=== PATIENT | male | born 1970 | race Two or more races ===

== ENCOUNTER 2019-03-26 12:49 | Inpatient (IN) | payer MEDICAID ==
[~2019-03-26] VITALS: Ht 170.2 cm; Wt 68.0 kg
--- NOTE | 2019-03-26 12:59 | NUR ---
BIBRA89, HOMELESS, FOUND WALKING IN THE MIDDLE OF THE STREET, DENIES SI/HI. PATIENT A/OX2-3 BREATHING EVEN AND UNLABORED, NO SOB NOTED, NEEDS ATTENDED. KEPT COMFORTABLE.
[2019-03-26 14:41] LABS: BASOPHILS % (AUTO) 0.4 % (0.0-2.0); CALCIUM, SERUM 9.2 mg/dL (8.5-10.1); CARBON DIOXIDE 23 mmol/L (21-32); CHLORIDE 107 mmol/L (98-107); CREATININE 1.5 mg/dL (0.6-1.3); EOSINOPHILS % (AUTO) 0.1 % (0.0-6.0); GLUCOSE 110 mg/dL (74-106); HEMATOCRIT 34 % (39-51); HEMOGLOBIN 11.5 g/dL (13.5-17.5); LYMPHOCYTES # (AUTO) 1.3 /CMM (0.8-4.8); LYMPHOCYTES % (AUTO) 22.6 % (20.0-44.0); MEAN CORPUSCULAR HGB CONC 33 g/dl (31.0-36.0); MEAN CORPUSCULAR VOLUME 89 fL (80-96); MONOCYTES # (AUTO) 0.4 /CMM (0.1-1.30); MONOCYTES % (AUTO) 7.1 % (2.0-12.0); NEUTROPHILS % (AUTO) 69.8 % (43.0-81.0); PLATELET COUNT (AUTO) 246 /CMM (150-450); POTASSIUM 3.9 mmol/L (3.5-5.1); RED BLOOD CELL COUNT(AUTO) 3.86 MIL/uL (4.5-6.0); SODIUM SERUM 142 mmol/L (136-145); UREA NITROGEN, BLOOD 37 mg/dL (7-18); WHITE BLOOD COUNT (AUTO) 5.7 K/uL (4.3-11.0)
[2019-03-26 14:46] LABS: ACETAMINOPHEN 0 ug/ml (10-30); ALANINE AMINOTRANSFERASE 24 U/L (12-78); ALBUMIN 4.6 g/dL (3.4-5.0); ALCOHOL, BLOOD < 3 mg/dL (0-0); ALKALINE PHOSPHATASE 48 U/L (46-116); ASPARTATE AMINOTRANSFERASE 27 U/L (15-37); BILIRUBIN,DIRECT 0.1 mg/dL (0.0-0.2); BILIRUBIN,TOTAL 0.4 mg/dL (0.2-1.0); SALICYLATE 1.4 mg/dL (2.8-20.0); TOTAL PROTEIN, SERUM 8.6 g/dL (6.4-8.2)
--- NOTE | 2019-03-26 15:08 | NUR ---
Patient is resting comfortably in bed with eyes closed. Easily aroused. VSS. URINE SENT VIA STRAIGHT CATH.
[2019-03-26 15:13] LABS: APPEARANCE,URINE Clear (CLEAR); BILIRUBIN,URINE Negative (NEGATIVE); BLOOD, URINE Trace-intact Ery/uL (NEGATIVE); COLOR,URINE Yellow (YELLOW); KETONES,URINE Trace (NEGATIVE); LEUKOCYTE ESTERASE ,URINE Negative (NEGATIVE); NITRITE, URINE Negative (NEGATIVE); PH,URINE 5.5 (5.0-8.0); PROTEIN,URINE Negative (NEGATIVE); UGLUCOSE Negative (NEGATIVE); UROBILINOGEN,URINE 0.2 EU/dL (0.2)
[2019-03-26 15:18] LABS: BACTERIA,URINE Rare /HPF (None Seen); SQUAMOUS EPITHELIAL CELL,UR Rare /HPF (None Seen); WBC,URINE 0-2 /HPF (0-3)
[2019-03-26] MEDS ORDERED: OLANZAPINE 5 MG TABLET ONE (16:52)
[2019-03-26] MEDS ORDERED: OLANZAPINE 5 MG/TAB.RAPDIS PO ONE ×2 (17:00→19:00)
--- NOTE | 2019-03-26 17:24 | NUR ---
CALLED LOGISTICS CLERK CHELSEA SOLIZMAJAG
--- NOTE | 2019-03-26 19:10 | NUR ---
PATIENT SEEN BY HEYDI VITAL. RECEIVED ORDER FROM MARINE PATTERSON, TO PLACE PATIENT ON RESTRAINTS. Addendum: 03/26/19 at 1915 by ROALCANCES ADDENDUM: PER MARINE LORENZO, PATIENT WILL BE RE-ASSESSED IN THE MORNING AFTER ADMINISTRATION OF PSYCH MEDICATIONS.
--- NOTE | 2019-03-26 19:18 | NUR ---
REPORT GIVEN TO JOSH DUONG RN.
[2019-03-26] MEDS ORDERED: diphenhydrAMINE HCL 50 MG/ML VIAL ONE (19:19)
[2019-03-26] MEDS ORDERED: HALOPERIDOL LACTATE INJ 5 MG/ML VIAL ONE (19:19)
[2019-03-26] MEDS ORDERED: LORAZEPAM INJ 2 MG/ML VIAL ONE (19:20)
[2019-03-26] MEDS ORDERED: HALOPERIDOL LACTATE INJ 5 MG/ML VIAL IM ONE (19:30)
[2019-03-26] MEDS ORDERED: LORAZEPAM INJ 2 MG/ML VIAL IM/IV ONE (19:30)
[2019-03-26] MEDS ORDERED: diphenhydrAMINE HCL 50 MG/ML VIAL IV ONE (19:30)
--- NOTE | 2019-03-26 20:05 | NUR ---
PT ASSESSED ON BED AWAKE, NOT IN RESPIRAOTRY DISTRESS, AAOX1, V/S STABLE, KEPT RESTED AND COMFORTABLE, WILL CONTINUE TO MONITOR.
--- NOTE | 2019-03-26 23:35 | NUR ---
PT ASLEEP ON BED, EASILY AROUSABLE, NOT IN RESPIRATORY DISTRESS, V/S STABLE, KEPT RESTED AND COMFORTABLE, WILL CONTINUE TO MONITOR.
--- NOTE | 2019-03-27 03:29 | NUR ---
NOTED TACHYCARDIA AND HYPERTENSION. ER MD AWARE
[2019-03-27] MEDS ORDERED: IV NS 0.9% 1,000 ML BAG IV ONE (03:30)
--- NOTE | 2019-03-27 05:15 | NUR ---
HEYDI STEEN PAGED. ON HIS WAY
--- NOTE | 2019-03-27 06:24 | NUR ---
HEYDI STEEN AT BEDSIDE FOR EVAL.
--- NOTE | 2019-03-27 12:30 | NUR ---
PT PROVIDED W/ LUNCH TRAY.
--- NOTE | 2019-03-27 14:20 | NUR ---
DONTE RN AT BEDSIDE FOR REPEAT PSYCH EVAL.
--- NOTE | 2019-03-27 20:17 | NUR ---
ASSUMED CARE FOR PT AT THIS TIME. PT RESTING COMFORTABLY IN BED. SITTER AT BEDSIDE. WILL CONTINUE TO MONITOR
--- NOTE | 2019-03-27 20:20 | NUR ---
PER SHANDA DUEÑAS LCSW UNABLE TO FIND PLACEMENT FOR PATIENT WITHOUT SS. REQUESTING FOR POSSIBLE MEDICAL ADMISSION
[2019-03-27] MEDS ORDERED: HYDROCODONE/APAP 5/325MG 1 EACH TABLET PO PRN (20:30)
[2019-03-27] MEDS ORDERED: ACETAMINOPHEN 325 MG TABLET PO PRN (20:30)
[2019-03-27] MEDS ORDERED: ONDANSETRON HCL/PF 4 MG/2 ML VIAL IVP PRN (20:30)
--- NOTE | 2019-03-27 20:40 | NUR ---
CALLED NURSING SUP FOR BED
--- NOTE | 2019-03-27 22:05 | NUR ---
CALLED IN REPORT TO TRENTON TRUONG RN HAVE SITTER AVAILABLE FOR ANOTHER 30 MIN
[2019-03-27 23:00] VITALS: BP 142/103
--- NOTE | 2019-03-27 23:00 | NUR ---
TRANSPORTED TO UNIT BY EMT
--- NOTE | 2019-03-27 23:00 | NUR ---
MS/MECHANIC RECOVERY RECEIVED PATIENT ON UNIT ACCOMPANIED BY 2 EMT FORM ER, ALERT X1 ON A GURNEY, KYRGYZ SPEAKING, CAN ANSWER SIMPLE QUESTIONS OBSERVE WEAK, RESPIRATIONS EVEN AND UNLABORE SKIN WARM TO TOUCH, WITH LEFT LEG OLD SCAB. NIO OPEN WOUNDS. REPORT RECEIVED PATIENT REQUIRE CASE MANAGEMENT REJI PLACEMENT WITH DX OF ACUTE ENCEPHALOPATHY AND SECONDARY SOHAM. VITAL SIGNS CHECKED, TEMPERATURE AT 99.8 DEG, NO GUARDING OR GRIMACE, BELONGINGS CHECK, SITTER ORDER PATIENT HAVE BEHAVIORAL ISSUES. IV ON LEFT FOREARM WILL MONITOR AND ASSIST WITH CARE, DIET ORDER, PROVIDED FLUIDS.
[2019-03-27] MEDS: QUETIAPINE FUMARATE 25 MG TABLET PO SCH (23:22)
[2019-03-27] MEDS ORDERED: hydrALAZINE HCL IV 20 MG VIAL IV PRN (23:30)
[2019-03-28] MEDS: IV NS 0.9% 1,000 ML IV PRN ×2 (01:53→14:20)
[2019-03-28 04:00] VITALS: BP 147/104
--- NOTE | 2019-03-28 04:34 | NUR ---
MS/RN NOTES TYLENOL 650 MG PO GIVEN AND TOLERATED WITH WATER. ABLE TO DRINK A PITCHER OF WATER,
[2019-03-28 05:55] VITALS: BP 147/104
[2019-03-28 06:26] LABS: BASOPHILS % (AUTO) 0.2 % (0.0-2.0); EOSINOPHILS % (AUTO) 0.6 % (0.0-6.0); HEMATOCRIT 34 % (39-51); HEMOGLOBIN 11.1 g/dL (13.5-17.5); LYMPHOCYTES # (AUTO) 2.2 /CMM (0.8-4.8); LYMPHOCYTES % (AUTO) 29.7 % (20.0-44.0); MEAN CORPUSCULAR HGB CONC 33 g/dl (31.0-36.0); MEAN CORPUSCULAR VOLUME 89 fL (80-96); MONOCYTES # (AUTO) 0.9 /CMM (0.1-1.30); MONOCYTES % (AUTO) 12.1 % (2.0-12.0); NEUTROPHILS # (AUTO) 4.3 /CMM (1.8-8.9); NEUTROPHILS % (AUTO) 57.4 % (43.0-81.0); PLATELET COUNT (AUTO) 227 /CMM (150-450); RED BLOOD CELL COUNT(AUTO) 3.82 MIL/uL (4.5-6.0); WHITE BLOOD COUNT (AUTO) 7.5 K/uL (4.3-11.0)
--- NOTE | 2019-03-28 06:45 | NUR ---
322-2 ms/rn notes patient able to sleep during the night, able to answer simple questions. respitations even and unlabored. require assistance in adls. slovak speaking. bed locked, incontinent. will endorse to am rn for flora. on iv fluids at 100ml/hr,
[2019-03-28 06:47] LABS: CALCIUM, SERUM 8.3 mg/dL (8.5-10.1); CREATININE 1.3 mg/dL (0.6-1.3); MAGNESIUM 1.8 mg/dL (1.8-2.4); PHOSPHORUS 3.4 mg/dL (2.5-4.9); POTASSIUM 3.6 mmol/L (3.5-5.1)
[2019-03-28 08:00] VITALS: BP_SYST 143; BP_SYST 93; BP_DIAS 105; BP_DIAS 72
--- NOTE | 2019-03-28 08:00 | NUR ---
m/s plumber maintenance: initial assessment received pt in bed awake, alert to name; speech mumbles and difficult to understand. sitter at bedside. maltese speaking only. no c/o pain or any discomfort. no apparent distress noted. iv fluids infusing. will continue to monitor.
[2019-03-28] MEDS: QUETIAPINE FUMARATE 25 MG TABLET PO SCH ×2 (08:14→17:30)
[2019-03-28] MEDS: PANTOPRAZOLE 40 MG TABLET.DR PO SCH (08:14)
--- NOTE | 2019-03-28 10:55 | NUR ---
Social service consult requested by Dr. Obrien for homelessness and possible missing persons. Pt. is a 48 year old male who was admitted to [facility] after found walking in the middle of the street with bizarre behavior. Pt. has a sitter bedside. Pt. is Sao Tomean speaking. bautista Villalba assisted in translation. Pt. is alert and oriented x 1. Pt. mumbles and is unable to provide any meaningful information at this time. SW contacted [employer] Missing persons and spoke with Detective Duran who informed JAMESON that pt. has not been reported missing.
--- NOTE | 2019-03-28 11:00 | NUR ---
m/s consultant technology: md visit seen by dr. sierra with order for psych consult. order acknowledged. faxed face sheet to gps for dr. saul (consult) and verified with gps cn. pt resting comfortable. sitter remains at bedside. will continue to monitor.
[2019-03-28] MEDS: LORAZEPAM INJ 2 MG/ML VIAL IV PRN (14:27)
--- NOTE | 2019-03-28 14:27 | NUR ---
m/s identification printing machine setter: notes pt restless m/b disrobing, pulling lines, and getting out of bed. remains confused and disoriented. reality orientation provided prn. ativan 1mg ivp given by rn. sitter remains at bedside. will continue to monitor.
--- NOTE | 2019-03-28 15:30 | NUR ---
m/s power brake operator: notes sounds asleep at this time. sitter remains at bedside. will continue to monitor.
--- NOTE | 2019-03-28 15:50 | NUR ---
m/s analytics director: psych consult seen and examined by dr. saul with verbal order to increase seroques to 25mg po bid and q 6 hrs prn. orders read back and carried out.
[2019-03-28 16:00] VITALS: BP 93/72
[2019-03-28] MEDS ORDERED: QUETIAPINE FUMARATE 25 MG TABLET PO PRN (16:00)
--- NOTE | 2019-03-28 17:00 | NUR ---
m/s tabulating machine mechanic: notes in bed with eyes close. no distress noted. sitter remains at bedside.
--- NOTE | 2019-03-28 18:50 | NUR ---
m/s hot blast worker: notes in bed resting comfortable with sitter at bedside. remains confused and disoriented. reality orientation provided prn. needs attended. no apparent distress noted.
--- NOTE | 2019-03-28 19:02 | NUR ---
m/s outside sales inspector: notes bedside report given to jass (rn) for continuity of care.
--- NOTE | 2019-03-28 19:55 | NUR ---
MS/RN OPENING NOTES RECEIVED PATIENT IN BED, AWAKE,ALERTX1, ABLE TO RESPOND BY STATING NAME AND MAKE A NOD WHEN ASKED IF HE IS THIRSTY. REQUIRE ONE ON ONE OBSERVATION PER MD DUE TO BEHAVIOR AND CONFUSION , ON SEROQEL MEDICATION, RESPIRATIONS EVEN AND UNLABORED, NO FEVER WITH MODERATE BLOOD PRESSURE READING. REQUIRE ASSISTANCE IN HYGIENE AND ALL ADLS. BED LOCKED. MONITORED FOR SAFETY.
[2019-03-28 20:00] VITALS: BP 141/100
[2019-03-29] VITALS (7 sets, daily range): BP systolic 101–159; BP diastolic 97–112
[2019-03-29] MEDS: IV NS 0.9% 1,000 ML IV PRN (01:46)
--- NOTE | 2019-03-29 02:11 | NUR ---
MS/RN NOTES PATIENT PROVIDED WITH SNACKS, AWAKE, REQUIRE ASSISTANCE AT ALL TIMES FOR SAFETY, REQUIRES REORIENTATION AND ATTEMPTS TO EMOVE DIAPER NEEDED MEDICATION SEROQUEL FOR BEHAVIOR CHANGES GIVEN. MONITORING OBSERVE ONE ON ONE WITH SITTER.
--- NOTE | 2019-03-29 06:30 | NUR ---
MS/RN NOTES PATIETN ALERT ORIENTED X2, ABLE RO RESPOND WITH SIMPLE QUESTIONS, SLEPT GOOD, PROVIDED SNACKS AND FLUIDS, OBSERVED ONE ON ONE FOR ANY BEHAVIOR OF SELF HARM, NCOMPLIANT BUT MAY NEED TO BE REORIENTED TO TIME, PLACE AND SAFETY MEASURE PATIETN REQUIRE EXTENSIVE ASSISTANCE IN ALL ADLS. PATIENT WHEN AWAKE PULLING OUT IV TUBING AND GETTING OUT OF BED.
[2019-03-29] MEDS: LORAZEPAM INJ 2 MG/ML VIAL IV PRN (06:42)
--- NOTE | 2019-03-29 07:15 | NUR ---
MS/RN - Assessment Patient is alert to self, confused and disoriented, reality orientation given, afebrile, stable on room air, no c/o pain, sitter at bedside for safety. Peripheral IV on the LFA is patent, intact, with no signs of infiltration. Fall, aspiration and seizure precautions maintained. Will continue with current plan of care.
[2019-03-29] MEDS: QUETIAPINE FUMARATE 25 MG TABLET PO SCH ×2 (08:11→16:21)
[2019-03-29] MEDS: PANTOPRAZOLE 40 MG TABLET.DR PO SCH (08:11)
--- NOTE | 2019-03-29 17:20 | NUR ---
MS/RN - End of shift summary No significant change in condition seen, alert to self, confused and disoriented, reality orientation given, restless at times. No fall/injury during shift. Sitter at bedside for safety. All needs attended. Will continue with current medical management.
[2019-03-29] MEDS: DIVALPROEX SODIUM 250 MG TABLET.DR PO SCH (18:27)
--- NOTE | 2019-03-29 19:10 | NUR ---
RN INITIAL NOTES: RECEIVED REPORT FROM BC GUARDADO. PT IN BED, AWAKE, A/O X1 TO SELF ONLY. PT ESTONIAN SPEAKING ONLY. SITTER AT BED SIDE. PT BEEN TRYING TO GET UP IN BED MULTIPLE TIMES, NEEDS ASSISTANCE WHEN AMBULATING FOR SAFETY PURPOSES. PRN ATIVAN AVAILABLE WHEN PT BECOMES AGITATED. PT ABLE TO MAKE HIS NEEDS KNOWN, PT IS CONTINENT, GOOD ORAL INTAKE. ATE 100% OF MEAL.
--- NOTE | 2019-03-29 20:31 | NUR ---
PRN APRESOLINE 10MG: PT'S BP ELEVATED, PLEASE SEE VS LOG LIST. CONTACTED [facility] PHARMACIST IF OKAY TO GIVE PRN APRESOLINE IV TO REGULAR MEDSURG PT, PER PHARM OKAY TO GIVE. PLACED PT ON TELE MONITORING FOR AT LEAST 2HR FOR SAFETY AND MONITORING OF HEART ACTIVITY OF THE PT. PRN APRESOLINE IV ADMINISTERED AT THIS TIME.
--- NOTE | 2019-03-29 20:47 | NUR ---
RN NOTES: PT ON SINUS RHYTHM HR 71.
--- NOTE | 2019-03-29 21:20 | NUR ---
RN NOTES: RECEHECK VS, BP STILL ELEVATED BUT WENT DOWN COMPARED TO EARLIER RESULT, NOW 145/104, PT DENIES ANY HEAD ACHE, PAIN, DIZZINESS OR LIGHT HEADEDNESS. ON SINUS RHYTHM 73. WILL CONTINUE MONITORING PT'S BP.
[2019-03-29] MEDS ORDERED: QUETIAPINE FUMARATE 25 MG TABLET PO SCH (22:00)
[2019-03-30] MEDS: LORAZEPAM INJ 2 MG/ML VIAL IV PRN ×4 (02:24→23:33)
--- NOTE | 2019-03-30 02:24 | NUR ---
PRN ATIVAN: PT NOTED TO BE AGITATED, RESTLESS, GETTING OUT OF BED MULTIPLE TIMES, PRN ATIVAN 1MG ADMINISTERED AT THIS TIME.
[2019-03-30 05:00] VITALS: BP 145/88
--- NOTE | 2019-03-30 06:46 | NUR ---
END OF SHIFT SUMMARY: PT REMAINS A/O X1, TO SELF ONLY. PROVIDED REORIENTATION TO REALITY AND SITUATION. AMBULATES WITH ASSISTANCE TO BATHROOM. IV ACCESS ON RFA AND LFA REMAINS PATENT AND FLUSHING WELL, NO S/S OF IV INFILTRATION NOTED. PRN ATIVAN GIVEN PT HAD EPISODE OF RESTLESSNESS AND AGITATION AROUND 0230AM. ASSISTED FREE LANCE ARTIST IN PROVIDING BED BATH TO PT, COMPLETE LINEN CHANGED PROVIDED. SITTER AT BED SIDE. VS REMAINS STABLE, NEEDS ATTENDED. SAFETY PRECAUTIONS FOR FALL REMAINS ENGAGED, CALL LIGHT IN REACH, WILL ENDORSE TO DAY RN FOR CONTINUITY OF CARE.
--- NOTE | 2019-03-30 07:36 | NUR ---
MS/RN OPENING NOTE PATIENT IS ALERT TO SELF, CONFUSED AND DISORIENTED, REALITY ORIENTATION GIVEN, STABLE ON ROOM AIR, SHOWING NO SIGNS OF APPARENT DISTRESS OR SOB. SITTER IS AT THE BEDSIDE. PERIPHERAL IVs ON THE RFA 20G H/L AND LFA 20G H/L ARE CLEAN AND PATENT. FALL, ASPIRATION AND SEIZURE PRECAUTIONS MAINTAINED. WILL CONTINUE WITH CURRENT PLAN OF CARE.
[2019-03-30] MEDS: PANTOPRAZOLE 40 MG TABLET.DR PO SCH (08:31)
[2019-03-30] MEDS: DIVALPROEX SODIUM 250 MG TABLET.DR PO SCH ×3 (08:32→16:03)
[2019-03-30] MEDS: QUETIAPINE FUMARATE 25 MG TABLET PO SCH ×3 (08:32→16:03)
[2019-03-30 09:42] VITALS: BP 143/96
--- NOTE | 2019-03-30 10:33 | NUR ---
Secondary Market Manager and student services advisor railroad car repair supervisor Terra Viveros also met with the pt. With a stringed instrument assembler pt. states his date of as October, and says he has a son named Familia Kline. Pt. states his name as Bernardo Chowdhury and as Bernardo Kline. Pt. knows he is at a hospital. Pt. also provides his uncle's name Rey Carter. When asked where he lives, pt. states [place] and then says [place]. SW contacted Missing persons again and spoke with Detective Rodríguez regarding if anyone has reported him missing. SW gave him both date of births and last names. No one has reported pt. as missing.
[2019-03-30] MEDS: LACTULOSE 10 G/15 ML UDC (PYXIS) PO SCH ×2 (12:27→16:03)
[2019-03-30 15:51] VITALS: BP 146/98
--- NOTE | 2019-03-30 17:28 | NUR ---
MS/RN CLOSING NOTE PATIENT RESTING INTERMITTENTLY IN BED. A/O X1, ALERT TO SELF, CONFUSED AND DISORIENTED, REALITY ORIENTATION GIVEN. PATIENT IS AGITATED AND ANXIOUS THROUGHOUT SHIFT, ATIVAN GIVEN 1MG AT 1015 AND 1600. RFA 20G H/L AND LFA 20G H/L CLEAN AND PATENT. PATIENT REFUSED IV FLUIDS. PATIENT HAS ADEQUATE ORAL AND FLUID INTAKE. SITTER AT THE BEDSIDE. NO FALL/INJURY DURING THIS SHIFT. SAFETY AND FALL PRECAUTIONS MAINTAINED. ALL NEEDS ATTENDED. WILL ENDORSE TO WORKFORCE PLANNER.
[2019-03-30] MEDS ORDERED: OLANZAPINE 2.5 MG TABLET PO PRN (18:00)
--- NOTE | 2019-03-30 19:45 | NUR ---
MS RN OPENING NOTES RECEIVED PATIENT FROM MORNING SHIFT, ALERT AND ORIENTED X 1 CONFUSED AND UNCOOPERATIVE. VERBALLY RESPONSIVE CZECH SPEAKING. BREATHING REGULAR AND UNLABORED ON ROOM AIR. LEFT AND RIGHT FOREARM G20 IV LINES INTACT AND PATENT, FLUSHING WELL WITH NO BLEEDING OR S/S OF INFECTION/INFILTRATION NOTED. NO S/S OF PAIN/DISCOMFORT SEEN OF THE TIME. ON 1:1 SITTER OBSERVED TRYING TO GET OUT OF BED AND REMOVING HIS IV LINE. REORIENTED TO REALITY FROM TIME TO TIME. SAFETY PRECAUTIONS OBSERVED. BED LOW AND LOCKED ON SEMI FOWLERS POSITION. CALL LIGHT IN REACH. WILL CONTINUE TO MONITOR.
[2019-03-30] MEDS: OLANZAPINE 2.5 MG TABLET PO SCH (20:01)
[2019-03-30] MEDS: TEMAZEPAM 15 MG CAPSULE PO PRN (21:51)
--- NOTE | 2019-03-30 21:55 | NUR ---
MS RN NOTES PATIENT OBSERVED UNABLE TO STAY ASLEEP, RESTORIL 15MG GIVEN BY MOUTH. NON-PHARMACOLOGICAL INTERVENTIONS PROVIDED. WILL CONTINUE TO MONITOR.
[2019-03-30 22:00] VITALS: BP 140/98
--- NOTE | 2019-03-30 23:40 | NUR ---
MS RN NOTES STILL NOTED WITH EPISODE OF AGITATION, TRIES TO GET OUT OF BED AND PULLS HIS IV LINE. ATIVAN 1MG GIVEN VIA IV PUSH. NONPHARMACOLOGICAL INTERVENTIONS DONE. WILL CONTINUE TO MONITOR.
--- NOTE | 2019-03-31 06:42 | NUR ---
MS RN CLOSING NOTES PATIENT IN BED, ALERT AND ORIENTED X 1 WITH NO S/S OF DISTRESS OBSERVED. STILL NOTED WITH AGITATION, EPISODES OF TRYING TO GET OUT OF BED AND PULLING HIS IV LINE. REORIENTED BACK TO REALITY. BREATHING REGULAR AND UNLABORED ON ROOM AIR. RIGHT AND LEFT FOREARM IV LINES G20 INTACT AND PATENT, FLUSHING WELL WITH NO BLEEDING OR S/S OF INFECTION/INFILTRATION NOTED. NO S/S OF PAIN/DISCOMFORT NOTED WITHIN THE SHIFT. BED LOW AND LOCKED ON SEMI FOWLERS POSITION. CALL LIGHT IN REACH. WILL ENDORSE TO MORNING SHIFT FOR RONEY.
--- NOTE | 2019-03-31 07:30 | NUR ---
MS RN OPENING NOTES: RECEIVED PATIENT AWAKE AND ALERT IN BED. A/O X 1 WITH MILD CONFUSION. VERBALLY RESPONSIVE. SWEDISH SPEAKING. NO S/S OF SOB OR DISCOMFORT. BREATHING IS EVEN AND UNLABORED ON ROOM AIR. LEFT AND RIGHT FOREARM G20 IV LINES INTACT AND PATENT, FLUSHING WELL WITH NO S/S OF INFECTION/INFILTRATION NOTED. NO S/S OF PAIN/DISCOMFORT SEEN OF THE TIME. ON 1:1 SITTER OBSERVED TRYING TO GET OUT OF BED AND REMOVING HIS IV LINE. SAFETY PRECAUTIONS OBSERVED. BED IS IN LOW AND LOCKED ON SEMI FOWLERS POSITION. CALL LIGHT IS WITHIN REACH. WILL CONTINUE TO MONITOR ACCORDINGLY.
[2019-03-31 08:00] VITALS: BP 149/91
[2019-03-31] MEDS: PANTOPRAZOLE 40 MG TABLET.DR PO SCH (08:13)
[2019-03-31] MEDS: LACTULOSE 10 G/15 ML UDC (PYXIS) PO SCH ×2 (08:13→16:04)
[2019-03-31] MEDS: OLANZAPINE 2.5 MG TABLET PO SCH ×2 (08:13→16:46)
[2019-03-31] MEDS: DIVALPROEX SODIUM 250 MG TABLET.DR PO SCH ×3 (08:13→16:04)
[2019-03-31] MEDS: LORAZEPAM INJ 2 MG/ML VIAL IV PRN ×2 (11:11→23:10)
[2019-03-31 16:00] VITALS: BP 143/104
[2019-03-31] MEDS ORDERED: OLANZAPINE 2.5 MG TABLET PO PRN (17:00)
--- NOTE | 2019-03-31 17:00 | NUR ---
MS RN NOTES PATIENT NOTED WITH TEMP OF 101.1 DR. AMI GRADY MADE AWARE ORDERS TO CONTINUE TO MONITOR. TYLENOL SUPP. GIVEN WILL CONTINUE TO MONITOR.
--- NOTE | 2019-03-31 18:56 | NUR ---
MS RN CLOSING NOTES PATIENT IS IN BED, ALERT AND ORIENTED X 1. BANGLADESHI SPEAKING. NO S/S OF SOB OR DISTRESS NOTED. BREATHING REGULAR AND UNLABORED ON ROOM AIR. PATIENT WAS NOTED WITH AGITATION, AND EPISODES OF TRYING TO GET OUT OF BED AND PULLING OUT HIS IV LINE. REORIENTED BACK TO REALITY. SITTER WAS PRESENT THROUGH OUT THE SHIFT. ALL DUE MEDS GIVEN ORDERED. TOLERATED WELL. ALL NURSING NEEDS MET AND PROVIDED. RIGHT AND LEFT FOREARM IV LINES G20 CLEAN, INTACT AND PATENT, FLUSHING WELL WITH NO OR S/S OF INFECTION/INFILTRATION. NO S/S OF PAIN/DISCOMFORT NOTED WITHIN THE SHIFT. SAFETY MEASURES ARE KEPT IN PLACE. BED IS IN LOW AND LOCKED ON POSITION. CALL LIGHT WITHIN REACH. WILL ENDORSE TO PRODUCTION GRAPHIC DESIGNER FOR RONEY.
--- NOTE | 2019-03-31 19:41 | NUR ---
ms jose initial notes, received report from am nurse while doing rounds and saw pt in bed still sleeping comfortably in bed without any soft wrist restraint. breathing even and unlabored , not in any discomfort noted. kept him warm and comfortable at all times. side rails up and bed in low and lock in position . sitter at the bedside for safety. will continue monitoring.
--- NOTE | 2019-03-31 22:00 | NUR ---
TEXT MD FOR SOFT RESTRAINTS D/T PATIENT CLIMBING OOB SITTER AT THE BEDSIDE BUT THE PATIENT IS OVER WHELMINGLY STRONG. i ATTEMPTED TO TALK TO THE PATIENT TURNED TV ON TURN THE LIGHT OUT. ALL ATTEMPTS TO KEEP HIM IN BED NOT SUCCESSFUL.
[2019-03-31] MEDS: TEMAZEPAM 15 MG CAPSULE PO PRN (22:25)
[2019-03-31] MEDS: IV NS 0.9% 1,000 ML IV PRN (23:13)
[2019-04-01 06:26] LABS: BASOPHILS % (AUTO) 0.4 % (0.0-2.0); EOSINOPHILS % (AUTO) 1.7 % (0.0-6.0); HEMATOCRIT 33 % (39-51); HEMOGLOBIN 11.1 g/dL (13.5-17.5); LYMPHOCYTES # (AUTO) 1.8 /CMM (0.8-4.8); LYMPHOCYTES % (AUTO) 29.4 % (20.0-44.0); MEAN CORPUSCULAR HGB CONC 34 g/dl (31.0-36.0); MEAN CORPUSCULAR VOLUME 88 fL (80-96); MONOCYTES # (AUTO) 0.5 /CMM (0.1-1.30); MONOCYTES % (AUTO) 7.7 % (2.0-12.0); NEUTROPHILS # (AUTO) 3.8 /CMM (1.8-8.9); NEUTROPHILS % (AUTO) 60.8 % (43.0-81.0); PLATELET COUNT (AUTO) 226 /CMM (150-450); RED BLOOD CELL COUNT(AUTO) 3.73 MIL/uL (4.5-6.0); WHITE BLOOD COUNT (AUTO) 6.2 K/uL (4.3-11.0)
[2019-04-01 06:54] LABS: ALBUMIN 3.4 g/dL (3.4-5.0); BILIRUBIN,TOTAL 0.2 mg/dL (0.2-1.0); CALCIUM, SERUM 8.4 mg/dL (8.5-10.1); CREATININE 1.1 mg/dL (0.6-1.3); POTASSIUM 3.8 mmol/L (3.5-5.1); TOTAL PROTEIN, SERUM 7.2 g/dL (6.4-8.2)
--- NOTE | 2019-04-01 07:43 | NUR ---
M/S RN NOTES PATIENT RESTING, LYING IN BED. PATIENT LITHUANIAN SPEAKING, ALERT AND ORIENTED X1. SITTER AT BEDSIDE. PATIENT IN NO RESPIRATORY DISTRESS, NO S/S OF PAIN AT THIS TIME. IV NS INFUSING ON THE RAC #20G INTACT AND PATENT, ALSO HAS LAC #20G SL INTACT AND PATENT. PATIENT'S NEEDS ATTENDED. BED ON LOWEST LOCKED POSITION, CALL LIGHT WITHIN REACH. WILL CONTINUE TO MONITOR.
[2019-04-01 08:00] VITALS: BP 103/59
[2019-04-01] MEDS: LACTULOSE 10 G/15 ML UDC (PYXIS) PO SCH ×2 (08:38→17:16)
[2019-04-01] MEDS: OLANZAPINE 2.5 MG TABLET PO SCH ×3 (08:39→17:16)
[2019-04-01] MEDS: PANTOPRAZOLE 40 MG TABLET.DR PO SCH (08:39)
[2019-04-01] MEDS: DIVALPROEX SODIUM 250 MG TABLET.DR PO SCH ×2 (08:39→13:36)
[2019-04-01] MEDS: LORAZEPAM INJ 2 MG/ML VIAL IV PRN (09:45)
[2019-04-01] MEDS: DIVALPROEX SODIUM 500 MG TABLET.DR PO SCH (17:15)
--- NOTE | 2019-04-01 18:38 | NUR ---
M/S RN NOTES PATIENT RESTING, LYING IN BED. PRIOR PATIENT KEPT ON GETTING OUT OF BED. SITTER AT BEDSIDE. PATIENT IN NO RESPIRATORY DISTRESS, NO S/S OF PAIN AT THIS TIME. IV NS INFUSING ON THE LFA #20G INTACT AND PATENT, PATIENT'S NEEDS ATTENDED. BED ON LOWEST LOCKED POSITION, CALL LIGHT WITHIN REACH. WILL ENDORSE TO ONCOMING NURSE.
--- NOTE | 2019-04-01 19:10 | NUR ---
MS RN NOTES RECEIVED PT IN BED RESTING WITH SITTER AT BEDSIDE. RESPIRATIONS EVEN AND UNLABORED WITH NO S/S OF ACUTE DISTRESS OR SOB NOTED. NO S/S OF PAIN AT THIS TIME. PT WITH LFA #20G INFUSING NS @100 ML/HR. SAFETY MEASURES IN PLACE WITH BED IN LOWEST LOCKED POSITION WITH SIDE RAILS UP X2. CALL LIGHT WITHIN REACH. WILL CONTINUE TO MONITOR.
[2019-04-01 20:00] VITALS: BP 123/81
[2019-04-01] MEDS: IV NS 0.9% 1,000 ML IV PRN (22:21)
[2019-04-02] MEDS: LORAZEPAM INJ 2 MG/ML VIAL IV PRN ×3 (02:01→20:49)
--- NOTE | 2019-04-02 02:08 | NUR ---
MS RN NOTES PT NOTED AGITATED AND TRYING TO GET OUT OF BED, AGGRESSIVE, AND REMOVING ALL CLOTHES. ATIVAN GIVEN. WILL CONTINUE TO MONITOR.
--- NOTE | 2019-04-02 07:34 | NUR ---
MS RN NOTES PT IN BED RESTING WITH SITTER AT BEDSIDE. RESPIRATIONS EVEN AND UNLABORED WITH NO S/S OF ACUTE DISTRESS OR SOB NOTED THROUGHOUT SHIFT. NO S/S OF PAIN AT THIS TIME. PT WITH LFA #20G INFUSING NS @100 ML/HR. SAFETY MEASURES IN PLACE WITH BED IN LOWEST LOCKED POSITION WITH SIDE RAILS UP X2. PT KEPT CLEAN, DRY, AND COMFORTABLE. CALL LIGHT WITHIN REACH. WILL ENDORSE TO ONCOMING NURSE FOR RONEY.
--- NOTE | 2019-04-02 07:41 | NUR ---
MS RN OPENING NOTES Received Patient resting and asleep in bed. VS stable with no acute distress. Breathing even and unlabored on room air with no respiratory distress. No signs and symptoms of pain. 20g PIV on LFA clean, intact, and patent with NS infusing at 100ml/hr. Safety precautions in place. Bed locked and set to lowest position with side rails x 2 up. Sitter at bedside. All needs rendered at this time. Call light within reach. Will continue to monitor.
[2019-04-02] MEDS: OLANZAPINE 2.5 MG TABLET PO SCH ×3 (08:09→16:37)
[2019-04-02] MEDS: LACTULOSE 10 G/15 ML UDC (PYXIS) PO SCH ×2 (08:09→16:37)
[2019-04-02] MEDS: PANTOPRAZOLE 40 MG TABLET.DR PO SCH (08:09)
[2019-04-02] MEDS: DIVALPROEX SODIUM 250 MG TABLET.DR PO SCH ×2 (08:09→13:11)
--- NOTE | 2019-04-02 11:43 | NUR ---
MS RN NOTES Patient agitated, grabbing and pushing staff. Administered Ativan 1mg IVP at this time. Provided snacks and lunch as distraction. Patient eating. Sitter at bedside. Will continue to monitor.
--- NOTE | 2019-04-02 11:50 | NUR ---
MS RN NOTES Patient non-compliant. Patient pulling on IV lines, grabbing and pushing staff. Unable to reorient Patient, Patient non-verbal. Applied bilateral soft wrist restraints. Patient laying in bed watching TV. Sitter at bedside to reorient Patient. Patient in stable condition. Circulation checked. Will continue to monitor.
[2019-04-02] MEDS: IV NS 0.9% 1,000 ML IV PRN (14:46)
[2019-04-02] MEDS: DIVALPROEX SODIUM 500 MG TABLET.DR PO SCH (16:37)
--- NOTE | 2019-04-02 18:57 | NUR ---
MS RN CLOSING NOTES Patient resting and asleep in bed. VS stable with no acute distress. Breathing even and unlabored on room air with no respiratory distress. Denies pain. No signs and symptoms of pain. 20g PIV on LFA clean, intact, and patent with NS infusing at 100ml/hr. Safety precautions in place. Bilateral soft wrist restraints removed. Bed locked and set to lowest position with side rails x 3 up. Sitter at bedside. All needs rendered at this time. Call light within reach. Will endorse plan of care to oncoming shift.
--- NOTE | 2019-04-02 20:49 | NUR ---
MS RN NOTES PT NOTED WITH INCREASED AGITATION, ATIVAN GIVEN. WILL CONTINUE TO MONITOR.
[2019-04-03] MEDS: IV NS 0.9% 1,000 ML IV PRN (00:32)
--- NOTE | 2019-04-03 07:30 | NUR ---
MS RN OPENING NOTES RECEIVED PT IN BED, AWAKE, A/OX1, CENTRAL AFRICAN SPEAKING. 1:1 SITTER PRESENT. PT TOLERATING RA, WITH NO ACUTE RESPIRATORY DISTRESS NOTED. PT DENIES ANY PAIN OR DISCOMFORT AT THIS TIME. PT ALSO DENIES ANY CONCERNS OR QUESTIONS AT THE MOMENT. PIV TO RFA G22, FLUSHED WITH NS, INTACT AND OPERATIONAL; JUST PUT IN BY NIGHT NURSE DURING ENDORSEMENT. ALSO, PER NIGHT NURSE, PT HAS BOTH WRIST SOFT RESTRAINTS PRESENT, BUT AT THIS MOMENT PT IS NOT ON RESTRAINT. PT KEPT COMFORTABLE. CALL LIGHT KEPT WITHIN REACH. PT'S BED IN LOWEST, LOCKED POSITION WITH SR X3. WILL CONTINUE PLAN OF CARE.
--- NOTE | 2019-04-03 07:44 | NUR ---
MS RN NOTES PT IN BED RESTING WITH SITTER AT BEDSIDE. RESPIRATIONS EVEN AND UNLABORED WITH NO S/S OF ACUTE DISTRESS OR SOB NOTED THROUGHOUT SHIFT. NO S/S OF PAIN AT THIS TIME. PT KEPT CLEAN, DRY, AND COMFORTABLE. SAFETY MEASURES IN PLACE WITH BED IN LOWEST LOCKED POSITION WITH SIDE RAILS UP X2. CALL LIGHT WITHIN REACH. WILL ENDORSE TO ONCOMING NURSE FOR RONEY.
[2019-04-03] MEDS: PANTOPRAZOLE 40 MG TABLET.DR PO SCH (07:54)
[2019-04-03] MEDS: DIVALPROEX SODIUM 250 MG TABLET.DR PO SCH ×2 (07:54→13:11)
[2019-04-03 08:00] VITALS: BP 160/72
[2019-04-03] MEDS: LACTULOSE 10 G/15 ML UDC (PYXIS) PO SCH ×2 (08:09→16:21)
[2019-04-03] MEDS: OLANZAPINE 2.5 MG TABLET PO SCH ×3 (08:10→16:21)
[2019-04-03 16:00] VITALS: BP 162/68
[2019-04-03] MEDS: DIVALPROEX SODIUM 500 MG TABLET.DR PO SCH (16:21)
--- NOTE | 2019-04-03 18:42 | NUR ---
MS RN CLOSING NOTES PT IN BED, AWAKE, A/OX1, SLOVENIAN SPEAKING. 1:1 SITTER PRESENT. PT TOLERATING RA, WITH NO ACUTE RESPIRATORY DISTRESS NOTED. PT DENIES ANY PAIN OR DISCOMFORT AT THIS TIME. IVF NS AT 100ML/HR TO RAC G22, FLUSHED WITH NS, INTACT AND OPERATIONAL. PT KEPT COMFORTABLE. ALL NEEDS AND CARE ATTENDED. CALL LIGHT KEPT WITHIN REACH. PT'S BED IN LOWEST, LOCKED POSITION WITH SR X3. WILL ENDORSE TO INCOMING NIGHT NURSE FOR RONEY.
--- NOTE | 2019-04-03 19:10 | NUR ---
MS RN NOTES PT IN BED RESTING WITH SITTER AT BEDSIDE. RESPIRATIONS EVEN AND UNLABORED WITH NO S/S OF ACUTE DISTRESS OR SOB NOTED. PT WITH RAC #22G PATENT AND INTACT AND SL. NO S/S OF PAIN AT THIS TIME. PT KEPT CLEAN, DRY, AND COMFORTABLE. SAFETY MEASURES IN PLACE WITH BED IN LOWEST LOCKED POSITION WITH SIDE RAILS UP X2. CALL LIGHT WITHIN REACH. WILL CONTINUE TO MONITOR.
--- NOTE | 2019-04-04 07:00 | NUR ---
SNAKER DRIVING HORSES NOTES PATIENT IN BED ALERT ORIENTED X 1. SITTER AT BEDSIDE. NO ACUTE DISTRESS NOTED, BREATHING UNLABORED. IV ACCESS PATENT AND INTACT, NO REDNESS, NO SWELLING NOTED. SAFETY MEASURES IN PLACE. CALL LIGHT WITHIN REACH. WILL CONTINUE TO MONITOR ACCORDINGLY.
[2019-04-04] MEDS: DIVALPROEX SODIUM 250 MG TABLET.DR PO SCH ×2 (07:42→13:06)
[2019-04-04] MEDS: PANTOPRAZOLE 40 MG TABLET.DR PO SCH (07:42)
--- NOTE | 2019-04-04 08:05 | NUR ---
MS RN NOTES RECEIVED PT IN BED RESTING WITH SITTER AT BEDSIDE. RESPIRATIONS EVEN AND UNLABORED WITH NO S/S OF ACUTE DISTRESS OR SOB NOTED. NO S/S OF PAIN AT THIS TIME. PT KEPT CLEAN, DRY, AND COMFORTABLE. PT WITH LFA #20G SL. SAFETY MEASURES IN PLACE WITH BED IN LOWEST LOCKED POSITION WITH SIDE RAILS UP X2. CALL LIGHT WITHIN REACH. WILL ENDORSE TO ONCOMING NURSE FOR RONEY..
[2019-04-04] MEDS: OLANZAPINE 2.5 MG TABLET PO SCH ×3 (08:45→16:54)
[2019-04-04] MEDS: LACTULOSE 10 G/15 ML UDC (PYXIS) PO SCH ×2 (08:45→16:54)
[2019-04-04] MEDS: LORAZEPAM INJ 2 MG/ML VIAL IV PRN ×2 (10:16→17:19)
[2019-04-04] MEDS ORDERED: LIDOCAINE /MPF 1% VIAL 5 ML VIAL IJ ONE (12:00)
--- NOTE | 2019-04-04 12:29 | NUR ---
MS RN NOTES LUMBAR PUNCTURE DONE DR AMI GRADY, PATIENT IN LYING IN BED IN STABLE CONDITION . WILL CONTINUE TO MONITOR PATIENT. SPECIMEN TAKEN TO THE LABORATORY.
[2019-04-04 13:18] LABS: CSF GLUCOSE 54 mg/dL (40-70); CSF PROTEIN 43.7 mg/dL (15-45)
[2019-04-04] MEDS: IV NS 0.9% 1,000 ML IV PRN (15:33)
[2019-04-04] MEDS: DIVALPROEX SODIUM 500 MG TABLET.DR PO SCH (16:54)
--- NOTE | 2019-04-04 18:50 | NUR ---
MS RN NOTES PATIENT IN BED ALERT ORIENTED X 1. SITTER AT BEDSIDE. NO ACUTE DISTRESS NOTED, BREATHING UNLABORED. IV ACCESS PATENT AND INTACT, NO REDNESS, NO SWELLING NOTED. DUE MEDICATIONS GIVEN, NO ASE NOTED. NEEDS ATTENDED AND ANTICIPATED. KEPT CLEAN DRY AND COMFORTABLE. SAFETY MEASURES IN PLACE. CALL LIGHT WITHIN REACH. WILL ENDORSE TO NIGHT NURSE FOR CONTINUITY OF CARE.
--- NOTE | 2019-04-04 19:30 | NUR ---
MS RN OPENING NOTE RECEIVED PATIENT IN BED. A/O X1, VERY CONFUSED. TOLERATING ROOM AIR. RESPIRATIONS ARE EVEN AND UNLABORED, NO S/S SOB NOTED, DENIES PAIN AT THIS TIME. IV ACCESS IN LFA#18 RUNNING NS@100ML/HR. SITTER AT BEDSIDE. BED IS LOW AND LOCKED, HOB ELEVATED 20 DEGREES, SIDE RAILS UP X3, BED ALARM ON. CALL LIGHT WITHIN REACH. WILL CONTINUE TO MONITOR.
[2019-04-04 20:00] VITALS: BP 141/99
[2019-04-05] MEDS: TEMAZEPAM 15 MG CAPSULE PO PRN ×2 (00:44→20:30)
--- NOTE | 2019-04-05 00:44 | NUR ---
MS RN NOTE ADMINISTERED PRN RESTORIL 15MG D/T PATIENT IS NOT SLEEPING, CONSTANTLY TRYING TO GET UP, VERY RESTLESS, DESPITE DARK ROOM, WARM BLANKET, QUIET. WILL CONTINUE TO MONITOR.
--- NOTE | 2019-04-05 06:50 | NUR ---
MS RN CLOSING NOTE PATIENT IN BED. A/O X1, VERY CONFUSED. REMAINS TOLERATING ROOM AIR. RESPIRATIONS ARE EVEN AND UNLABORED, NO SOB NOTED, NO C/O PAIN. IV ACCESS REMAINS IN LFA#18 RUNNING NS@100ML/HR. SITTER AT BEDSIDE. CORRECTED RESTLESSNESS WITH RESTORIL. BED REMAINS LOW AND LOCKED, HOB ELEVATE FLAT, SIDE RAILS UP X3, BED ALARM ON. CALL LIGHT WITHIN REACH. WILL ENDORSE TO NEXT SHIFT.
--- NOTE | 2019-04-05 07:20 | NUR ---
RN OPENING NOTES RECEIVED PATIENT IN BED. A/O X1, VERY CONFUSED. TOLERATING ROOM AIR. NOT IN ANY FORM OF DISTRESS. RESPIRATIONS ARE EVEN AND UNLABORED, NO S/S SOB NOTED, DENIES PAIN AT THIS TIME. IV ACCESS IN LFA#18 RUNNING NS@100ML/HR. SITTER AT BEDSIDE FOR SAFETY. BED IS LOW AND LOCKED, SEMIFOWLERS POSITION, SIDE RAILS UP X3, BED ALARM ON. CALL LIGHT WITHIN REACH. WILL CONTINUE TO MONITOR.
[2019-04-05 08:00] VITALS: BP 176/90
[2019-04-05] MEDS: LACTULOSE 10 G/15 ML UDC (PYXIS) PO SCH ×2 (08:32→17:23)
[2019-04-05] MEDS: DIVALPROEX SODIUM 250 MG TABLET.DR PO SCH (08:32)
[2019-04-05] MEDS: OLANZAPINE 2.5 MG TABLET PO SCH ×3 (08:32→17:50)
[2019-04-05] MEDS: PANTOPRAZOLE 40 MG TABLET.DR PO SCH (08:32)
[2019-04-05] MEDS ORDERED: DIVALPROEX SODIUM 250 MG TABLET.DR PO SCH (13:00)
[2019-04-05 16:00] VITALS: BP 128/100
[2019-04-05] MEDS ORDERED: IOHEXOL-300 100 ML VIAL IV ONE (16:47)
[2019-04-05] MEDS: DIVALPROEX SODIUM 500 MG TABLET.DR PO SCH (17:24)
[2019-04-05] MEDS: IV NS 0.9% 1,000 ML IV PRN (17:53)
--- NOTE | 2019-04-05 19:15 | NUR ---
RN CLOSING NOTES PATIENT IN STABLE CONDITION. ALL NEEDS ATTENDED AND PROVIDED. ALL DUE MEDICATIONS ADMINISTERED ORDERED. KEPT PATIENT SAFE AND COMFORTABLE. BED IN LOW/LOCKED POSITION, SIDERAILS UPX2, CALL LIGHT IN REACH. ENDORSED TO NIGHT RN FOR RONEY. FOR DISCHARGE TONIGHT
--- NOTE | 2019-04-05 20:00 | NUR ---
MS RN NOTES RECEIVED PATIENT AWAKE IN WC WITH SITTER. NO DISTRESS NOTED. PATIENT CALM AND EASY TO REDIRECT. PERIPHERAL LINE INTACT AND PATENT. NO C/O PAIN OR DISCOMFORT. WILL CONTINUE TO MONITOR.
--- NOTE | 2019-04-05 20:30 | NUR ---
PATIENT DISCHARGED TO BOARD AND CARE NURSE. NO DISTRESS NOTED. VITALS REMAIN WNL. PATIENT REMAINS CALM. SPOKE WITH ANTONIA WITH ORDER FOR 30 DAY SUPPLY OF ALL CONTINUED MEDICATIONS. PRESCRIPTIONS CALLED IN TO [facility]REFERRED [facility]. ALL BELONGINGS AND DC INSTRUCTIONS GIVEN TO B&C NURSE AND VERBALIZED GOOD UNDERSTANDING. PERIPHERAL LINE REMOVED. PATIENT ASSISTED TO CAR VIA WC IN STABLE CONDITION.
[2019-04-07 10:08] LABS: *WEST NILE VIRUS IgG, CSF Positive (Negative)
[2019-04-07 11:08] LABS: *WEST NILE VIRUS IgM, CSF Negative (Negative)
[2019-04-07 12:07] LABS: VDRL, CSF Non Reactive (Non Rea:<1:1)
[2019-04-08 14:07] LABS: *CRYPTOCOCCUS AG, CSF Negative (Negative)
== END 2019-04-05 20:30 | disposition home or self-care (01) | DRG 469 ==
LOC: EDBD 12:49 → ER 12:49 → MED 03-27 21:59
PROVIDERS: ADMIT Nurse Practitioner Acute Care; ATTEND Nurse Practitioner Acute Care
PROC: 009U3ZX Drainage of Spinal Canal, Percutaneous Approach, Diagnostic (ICD-10-PCS; principal; 2019-04-04)
DX: N17.0 Acute kidney failure with tubular necrosis (principal); G93.41 Metabolic encephalopathy; E11.36 Type 2 diabetes mellitus with diabetic cataract; F05 Delirium due to known physiological condition; F29 Unspecified psychosis not due to a substance or known physiological condition; E86.0 Dehydration; Z59.0 Homelessness; I10 Essential (primary) hypertension; Z86.73 Personal history of transient ischemic attack (TIA), and cerebral infarction without residual deficits; N40.0 Benign prostatic hyperplasia without lower urinary tract symptoms; E78.5 Hyperlipidemia, unspecified; E03.9 Hypothyroidism, unspecified; D64.9 Anemia, unspecified; F10.10 Alcohol abuse, uncomplicated; R09.02 Hypoxemia
CPT/HCPCS: 36415; 70450-TC; 70460-TC; 80048-TC; 80053-TC; 80076-TC; 80164-TC; 80305; 81000-TC; 82140-TC; 83735-TC; 84100-TC; 85025-TC; 86592; 86694; 86788; 86789; 87070-TC; 87081-TC; 87899; 89051-TC; 97116-TC; 97530-TC; G0378; G0480; J0360; J1200; J1630; J2060; J3490; J7030; Q9967